=== PATIENT | male | born 1960 | race Caucasian/White ===

== ENCOUNTER 2022-07-22 14:09 | Outpatient (CLI) | payer BC | END 2022-07-22 14:10 | disposition home or self-care (01) | LOC: ULT 14:09 | PROVIDERS: ATTEND Preventive Medicine Undersea and Hyperbaric Medicine | DX: Z01.810 Encounter for preprocedural cardiovascular examination (principal); Z13.6 Encounter for screening for cardiovascular disorders; I08.1 Rheumatic disorders of both mitral and tricuspid valves; F07.81 Postconcussional syndrome | CPT/HCPCS: 93306 ==